=== PATIENT | male | born 1955 | race Caucasian/White ===

== ENCOUNTER 2023-11-04 13:17 | Outpatient (CLI) | payer MEDICARE | END 2023-11-04 13:18 | disposition home or self-care (01) | LOC: CSHRAD 13:17 | PROVIDERS: ATTEND Orthopaedic Surgery | DX: M54.50 Low back pain, unspecified (principal); M47.816 Spondylosis without myelopathy or radiculopathy, lumbar region; Z98.890 Other specified postprocedural states; N20.0 Calculus of kidney | CPT/HCPCS: 72100 ==